=== PATIENT | male | born 1955 | race Hispanic/Latino ===

== ENCOUNTER 2021-12-04 08:53 | Outpatient (CLI) | payer OTHER ==
--- NOTE | 2021-12-04 10:59 | XRay Report ---
LUMBOSACRAL SPINE 3 VIEWS INDICATION: Back pain. COMPARISON: None. IMPRESSION: Normal alignment. 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 No acute osseous or soft tissue abnormality. BILATERAL KNEES 2 VIEWS INDICATION: Bilateral knee pain. COMPARISON: None. IMPRESSION: No acute osseous or soft tissue abnormality. Mild medial compartment joint space narr owing and tibial spine spurring is identified in both knees. No significant joint effusion. BILATERAL SHOULDERS 3 VIEWS INDICATION: BILATERAL SHOULDER PAIN. COMPARISON: None. IMPRESSION: No acute osseous or soft tissue abnormality. 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 Signer Name: Nathaniel Weller Jr, MD Signed: 12/04/2021 10:55 AM Workstation Name: [id number]
== END 2021-12-04 08:54 | disposition home or self-care (01) ==
LOC: XRAY 08:53
PROVIDERS: ATTEND Internal Medicine
DX: M17.0 Bilateral primary osteoarthritis of knee (principal); M46.00 Spinal enthesopathy, site unspecified; M19.012 Primary osteoarthritis, left shoulder; M19.011 Primary osteoarthritis, right shoulder; M47.816 Spondylosis without myelopathy or radiculopathy, lumbar region
CPT/HCPCS: 72100